=== PATIENT | female | born 1990 | race Hispanic/Latino ===

== ENCOUNTER 2017-10-30 09:38 | Emergency (ER) | payer OTHER ==
[2017-10-30 09:40] VITALS: BMI 20.3
[2017-10-30] MEDS ORDERED: Albuterol-Ipratrop 3 mg / 0.5 (3 ml) UD IH STA (10:07)
[2017-10-30] MEDS ORDERED: Sodium Chloride 0.9% 1,000 ML IV STA ×2 (10:07→11:57)
[2017-10-30] MEDS ORDERED: Albuterol-Ipratrop 3 mg / 0.5 (3 ml) UD INH STA (10:07)
--- NOTE | 2017-10-30 10:12 | ED PDOC ---
HPI: SOB/CHF/COPD Time Seen by Provider: 10/30/17 09:51 Chief Complaint (Nursing): Shortness Of Breath Chief Complaint (Provider): Dyspnea History Per: Patient History/Exam Limitations: no limitations Additional Complaint(s): Pt. with dyspnea, wheezes like her asthma since Tuesday. Then got cough, nasal congestion, runny nose, weakness all over, body aches. Mild headache, not the worst in her life. No numbness, tingles. No neck pain, abd pain, back pain. No fever at home. No chest pain. Past Medical History Reviewed: Nursing Documentation, Vital Signs Vital Signs: Last Vital Signs Temp 100.8 F H 10/30/17 09:40 Pulse 119 H 10/30/17 09:40 Resp 15 10/30/17 10:01 BP 141/85 10/30/17 09:40 Pulse Ox 99 10/30/17 10:21 - Medical History PMH: Asthma - Surgical History Surgical History: No Surg Hx - Family History Family History: States: Unknown Family Hx - Living Arrangements Living Arrangements: With Family - Social History Current smoker - smoking cessation education provided: No Alcohol: None Drugs: Denies - Home Medications Home Medications: Ambulatory Orders Medication Instructions Recorded Albuterol Sulfate [Proair Hfa] 0.09 mg IH Q6H PRN #2 inh 10/30/17 Benzonatate [Tessalon Perles] 100 mg PO BID PRN 5 Days sgl 10/30/17 Oseltamivir Phosphate [Tamiflu] 75 mg PO BID 5 Days capsule 10/30/17 predniSONE [predniSONE Tab] 20 mg PO BID 5 Days tab 10/30/17 - Allergies Allergies/Adverse Reactions: Allergies Allergy/AdvReac Type Severity Reaction Status Date / Time pneumonia vaccine Allergy RASH Uncoded 10/30/17 09:58 Review of Systems ROS Statement: Except As Marked, All Systems Reviewed And Found Negative Constitutional: Positive for: Weakness ENT: Positive for: Nose Pain, Nose Discharge, Nose Congestion Respiratory: Positive for: Cough, Shortness of Breath, Sputum (yellow), Wheezing Musculoskeletal: Positive for: Other (bodyaches) Neurological: Positive for: Weakness Physical Exam - Reviewed Nursing Documentation Reviewed: Yes Vital Signs Reviewed: Yes - Physical Exam Appears: Positive for: Non-toxic, No Acute Distress Head Exam: Positive for: ATRAUMATIC, NORMAL INSPECTION, NORMOCEPHALIC Skin: Positive for: Normal Color, Warm, DRY Eye Exam: Positive for: EOMI, Normal appearance, PERRL ENT: Positive for: Nasal Congestion Neck: Positive for: Normal, Painless ROM Cardiovascular/Chest: Positive for: Regular Rate, Rhythm. Negative for: Edema Respiratory: Positive for: Wheezing (mild on expiration b/l). Negative for: Accessory Muscle Use, Respiratory Distress Gastrointestinal/Abdominal: Positive for: Normal Exam, Bowel Sounds, Soft. Negative for: Tenderness Back: Positive for: Normal Inspection. Negative for: L CVA Tenderness, R CVA Tenderness Extremity: Positive for: Normal ROM. Negative for: Tenderness, Pedal Edema Neurologic/Psych: Positive for: Alert, certified athletic trainer II-XII, Oriented. Negative for: Motor/Sensory Deficits - Laboratory Results Result Diagrams: 10/30/17 10:55 10/30/17 10:55 Interpretation Of Abn Labs: flu pos - ECG ECG: Positive for: Interpreted By Me, Viewed By Me ECG Rhythm: Positive for: Normal QRS, Normal ST Segment, Sinus Rhythm O2 Sat by Pulse Oximetry: 99 Pulse Ox Interpretation: Normal - Radiology X-Ray: Read By Radiologist X-Ray Interpretation: No Acute Disease - Progress ED Course And Treament: 1144: Stable. AAOx3. Fu with pcp. Flu pos. Disposition - Clinical Impression Clinical Impression: Asthma, Flu - Patient ED Disposition Is Patient to be Admitted: No Counseled Patient/Family Regarding: Studies Performed, Diagnosis, Need For Followup, Rx Given - Disposition Referrals: [facility] [Outside] - 10/31/17 Disposition: Routine/Home Disposition Time: 11:45 Condition: FAIR Additional Instructions: Return if not better in 3 days. Prescriptions: Albuterol Sulfate [Proair Hfa] 0.09 mg IH Q6H PRN #2 inh PRN Reason: Wheezing Benzonatate [Tessalon Perles] 100 mg PO BID PRN 5 Days sgl PRN Reason: Cough Oseltamivir Phosphate [Tamiflu] 75 mg PO BID 5 Days capsule predniSONE [predniSONE Tab] 20 mg PO BID 5 Days tab Instructions: Asthma (ED), Influenza (ED) Forms: [employer] ([place]), [facility] ED School/Work Excuse
[2017-10-30] MEDS ORDERED: Albuterol-Ipratrop 3 mg / 0.5 (3 ml) UD ONE (10:17)
[2017-10-30 10:53] LABS: VENOUS BLOOD GAS BASE EXCESS 1.1 mmol/L (0.0-2.0); VENOUS BLOOD GAS PCO2 28 mmHg (40-60); VENOUS BLOOD GAS PO2 15 mm/Hg (30-55); VENOUS BLOOD PH 7.52 (7.32-7.43)
--- NOTE | 2017-10-30 11:01 | RAD ---
HISTORY: dyspnea COMPARISON: No prior. FINDINGS: LUNGS: No active pulmonary disease. PLEURA: No significant pleural effusion identified, no pneumothorax apparent. CARDIOVASCULAR: Normal. OSSEOUS STRUCTURES: No significant abnormalities. VISUALIZED UPPER ABDOMEN: Normal. OTHER FINDINGS: None. IMPRESSION: No active disease.
[2017-10-30 11:02] LABS: BASO % 0.3 % (0.0-2.0); HEMOGLOBIN 14.9 g/dL (12.0-16.0); LYMPH # 0.2 K/uL (1.0-4.3); LYMPH % 4.3 % (20.0-40.0); MEAN CELL VOLUME 97.2 fl (81.0-99.0); MEAN CORPUSCULAR HEMOGLOBIN 33.3 pg (27.0-31.0); MEAN CORPUSCULAR HGB CONC 34.3 g/dL (33.0-37.0); MEAN PLATELET VOLUME 9.4 fl (7.2-11.7); MONO # 0.6 K/uL (0.0-0.8); MONO % 10.3 % (0.0-10.0); NEUT # 4.9 K/uL (1.8-7.0); NEUT % 85.1 % (50.0-75.0); NRBC % 0.1 % (0.0-0.0); PLATELET COUNT 162 K/uL (130-400); RBC 4.48 Mil/uL (3.80-5.20); WHITE BLOOD COUNT 5.8 K/uL (4.8-10.8)
[2017-10-30 11:11] LABS: ALBUMIN 5.2 g/dL (3.5-5.0); ALT/SGPT 28 U/L (9-52); AST/SGOT 27 U/L (14-36); BLOOD UREA NITROGEN 9 mg/dl (7-17); CALCIUM 10.3 mg/dL (8.4-10.2); GFR AFRICAN-AMERICAN > 60; GFR NON-AFRICAN AMERICAN > 60
[2017-10-30 11:14] LABS: SQUAMOUS EPITHIAL 5 /hpf (0-5); URINE BACTERIA RARE (<OCC); URINE BILIRUBIN NEGATIVE (NEGATIVE); URINE BLOOD NEGATIVE (NEGATIVE); URINE CLARITY CLOUDY (Clear); URINE COLOR YELLOW (YELLOW); URINE GLUCOSE (UA) NEG (Normal); URINE LEUKOCYTE ESTERASE SMALL Leu/uL (Negative); URINE NITRATE NEGATIVE (NEGATIVE); URINE PROTEIN NEGATIVE (NEGATIVE); URINE UROBILINOGEN 0.2-1.0 mg/dL (0.2-1.0)
[2017-10-30 11:29] LABS: ALB/GLOB RATIO 1.3 (1.0-2.1)
--- NOTE | 2017-10-30 12:00 | CARD ---
APPROVED REPORT <Conclusion> Normal sinus rhythm Normal ECG
[2017-10-30 13:03] VITALS: PULSE 99; TEMP 99.6; O2SAT 98
[2017-10-30 13:27] LABS: BANDS 2 % (0-2); BASOPHIL 1 % (0-2); LYMPHOCYTE 2 % (20-50); MONOCYTE 10 % (0-10); NEUTROPHIL 84 % (42-75); PLATELET ESTIMATE NORMAL (NORMAL); REACTIVE LYMPHOCYTES 1 % (0-0); TOTAL CELLS COUNTED 100
[2017-10-30 14:33] VITALS: BP 101/60; RESP 16
== END 2017-10-30 13:30 | disposition home or self-care (01) ==
LOC: H.ER 09:38
DX: J45.909 Unspecified asthma, uncomplicated (principal); J11.1 Influenza due to unidentified influenza virus with other respiratory manifestations
CPT/HCPCS: 71045; 80053; 81003; 81025; 82803; 84484; 85025; 87040; 87086; 87804; 93005; 94640; 96361; 96374; 96375; 99285; J1885; J2930; J7040